=== PATIENT | female | born 1960 | race Caucasian/White ===

== ENCOUNTER → 2017-11-10 11:47 | Outpatient (CLI) | payer OTHER, SELFPAY ==
--- NOTE | 2017-11-10 11:54 | XR_ITS ---
XR shoulder LT min 2V HISTORY: Persistent left shoulder pain status post injury ITS.REASON: left shoulder pain ORDERING PHYSICIAN: Roscoe Gaitan MD PATIENT AGE: 57 years COMPARISON: 11/09/2017 FINDINGS: No fracture or dislocation. No lytic or blastic change. There is normal mineralization. The joint spaces are well-preserved. No significant degenerative/arthritic changes. No erosive changes evident. Mild hypertrophic changes at the acromioclavicular joint. There is minimal inferior subluxation of the humeral head but no elvira dislocation. IMPRESSION: 1. No acute fracture. 2. Mild inferior subluxation humeral head. 3. Acromioclavicular arthropathy
== END ==
PROVIDERS: PCP Family Medicine; Visit Provider Orthopaedic Surgery
DX: M25.512 Pain in left shoulder (principal)
CPT/HCPCS: 73030

== ENCOUNTER → 2017-11-22 09:29 | Outpatient (CLI) | payer OTHER, SELFPAY ==
--- NOTE | 2017-11-22 09:32 | MR_ITS ---
MR shoulder LT wo con HISTORY:Left shoulder pain following injury with limited range of motion ITS.REASON: injury of left shoulder/ shoulder pain ORDERING PHYSICIAN: Roscoe Gaitan MD PATIENT AGE: 57 years Comparison: 11/10/2017 TECHNIQUE: Standard multiplanar multiecho sequences are performed without contrast. FINDINGS: There are osteoarthritic changes of the acromioclavicular joint with hypertrophy of the AC joint with subacromial stenosis and impingement upon the supraspinatus tendon. Hypertrophic changes are present along the inferior aspect of the distal acromion. There is thickening of the supraspinatus tendon with increased T2 signal consistent with tendinopathy/tendinosis. The distal aspect of the supraspinatus tendon is very ill-defined and may be torn. This is somewhat difficult to ascertain. There is a wall thickness tear involving the posterior aspect of the supraspinatus tendon with increased T2 signal at this area at the junction of the supra and infraspinatus tendons. There is mild thickening of the infraspinatus tendon as well with increased T2 signal consistent with tendinopathy/tendinosis.. Tendinopathy/tendinosis also involves the subscapularis tendon. Teres minor tendon appears intact. No obvious labral tear. Bicipital tendon is in place. No fracture evident. IMPRESSION: 1. Acromioclavicular arthropathy with hypertrophy of the acromioclavicular joint with subacromial stenosis and impingement upon the supraspinatus tendon. 2. Tendinopathy/tendinosis supraspinatus, infraspinatus, and subscapularis tendons. 3. Full-thickness tear involving the posterior aspect of the supraspinatus tendon. A complete tear with muscle tendinous retraction however not apparent.
== END ==
PROVIDERS: PCP Family Medicine; Visit Provider Orthopaedic Surgery
DX: S49.92XA Unspecified injury of left shoulder and upper arm, initial encounter (principal)
CPT/HCPCS: 73221

== ENCOUNTER → 2017-12-03 10:26 | Outpatient (CLI) | payer OTHER, SELFPAY ==
[2017-12-03 10:29] LABS: Microscopic, Urine URINE MICROSCOPIC (MICROSCOPIC)
[2017-12-03 10:56] LABS: Basophils # 0.1 K/mm3 (0-0.2); Basophils % 0.8 % (0.1-2.0); Eosinophils # 0.2 K/mm3 (0.0-0.4); Eosinophils % 2.1 % (0.1-12.0); Hematocrit 39.2 % (37.0-47.0); Hemoglobin 12.2 g/dL (12.2-16.2); Lymphocytes # 3.1 K/mm3 (0.7-4.5); Lymphocytes % 30.4 K/mm3 (10-50); Mean Corpuscular HGB Conc 31.1 g/dL (31.8-35.4); Mean Corpuscular Hemoglobin 27.6 pg (27.0-31.2); Mean Corpuscular Volume 88.9 fl (81-99); Mean Platelet Volume 8.2 fl (7.4-10.4); Monocytes # 0.4 K/mm3 (0.1-1.0); Neutrophils # 6.3 K/mm3 (1.8-7.8); Neutrophils % 62.7 % (37.0-80.0); Platelet Count 183 K/mm3 (142-424); Red Blood Count 4.41 M/mm3 (4.20-5.40); Red Cell Distribution Width 14.8 % (11.5-17.5); White Blood Count 10.1 K/mm3 (4.8-10.8)
[2017-12-03 11:08] LABS: Anion Gap 9.8 mEq/L (5-15); Blood Urea Nitrogen 10 mg/dL (7-18); Carbon Dioxide 33 mmol/L (21.0-32.0); Chloride 102 mmol/L (98-107); Creatinine,Serum 0.53 mg/dL (0.55-1.02); Estimated Glomerular Filt Rate 118 ml/min (>60); GFR (African American) 143 ML/MIN (>60); Glucose 99 mg/dL (74-106); Potassium 3.8 mmoL/L (3.5-5.1); Sodium 141 mmol/L (136-145)
[2017-12-03 11:18] LABS: Appearance,Urine CLEAR (Clear); Bilirubin,Urine Negative (Negative); Blood, Urine Negative (Negative); Color,Urine YELLOW (Yellow); Glucose,Urine (UA) Negative (Negative); Ketones,Urine Negative (Negative); Leukocyte Esterase,Urine Negative (Negative); Nitrate,Urine Negative (Negative); PH,Urine 7.5 (5.0-8.5); Protein,Urine Negative (Negative); Urobilinogen,Urine 0.2 EU/dl (0.2)
[2017-12-03 11:26] LABS: Bacteria,Urine Trace /lpf; Squamous Epithelial Cell,Urine Occasional #/hpf (0-5)
== END ==
PROVIDERS: Visit Provider Orthopaedic Surgery
DX: S49.92XA Unspecified injury of left shoulder and upper arm, initial encounter (principal); M75.82 Other shoulder lesions, left shoulder; M75.42 Impingement syndrome of left shoulder; M75.22 Bicipital tendinitis, left shoulder; Z01.818 Encounter for other preprocedural examination
CPT/HCPCS: 36415; 80048; 81001; 85025; 93005

== ENCOUNTER → 2018-03-10 08:52 | Outpatient (CLI) | payer OTHER, SELFPAY ==
--- NOTE | 2018-03-10 08:54 | XR_ITS ---
XR shoulder LT min 2V HISTORY: Shoulder pain, status post rotator cuff tear, follow-up surgery ITS.REASON: internal, external and y views ORDERING PHYSICIAN: Roscoe Gaitan MD PATIENT AGE: 57 years Comparison: 11/10/2017 FINDINGS: There has been interval osteotomy at the acromioclavicular joint. There are 2 anchors screws along the humeral head centrally. There is good alignment. No acute fracture or dislocation. Incidental note is made of some fullness of the left hilum. This could be projectional however, chest x-ray is suggested for further evaluation. IMPRESSION: 1. Postsurgical changes with no acute finding. 2. Mild fullness of the left hilum. Consider chest x-ray for further evaluation
== END ==
PROVIDERS: PCP Family Medicine; Visit Provider Orthopaedic Surgery
DX: Z47.89 Encounter for other orthopedic aftercare (principal)
CPT/HCPCS: 73030